=== PATIENT | male | born 1995 | race Caucasian/White ===

== ENCOUNTER 2017-02-03 00:37 | Emergency (ER) | payer OTHER ==
[2017-02-03 01:15] VITALS: BP 131/77
[2017-02-03 01:21] LABS: Urine Bacteria Absent (Absent); Urine Bilirubin Negative (Negative); Urine Glucose Negative (Negative); Urine Nitrite Negative (Negative)
[2017-02-03] MEDS ORDERED: Ciprofloxacin TAB* 500 MG PO ONE (02:07)
[2017-02-03] MEDS ORDERED: Phenazopyridine TAB* 100 MG PO ONE (02:09)
[2017-02-03] MEDS ORDERED: Acetaminophen TAB* 325 MG PO ONE (02:09)
--- NOTE | 2017-02-05 09:24 | PN ---
Progress Note - Progress Note Note: Patient urine culture grew E coli 25-50,000. patient placed on cipro will wait for final culture and sensitive.
--- NOTE | 2017-02-05 18:35 | ED ---
GI/ HPI - HPI Summary HPI Summary: Patient presents to ED with gross hematuria which started a few hours ago. He endorses urgency, frequency but denies burning with urination. He notes to mild discomfort suprapubically, but moderate penile discomfort. He denies chance of STD's and has been tested previously with negative results. He states there was clear discharge from the penis 1X today. He has never had a UTI before or has had penile problems. He denies testicular pain. Denies fevers , sweats or chills. Denies taking any medication. He has never had any problems with his kidneys and denies back pain. - History of Current Complaint Chief Complaint: EDUrogenitalProblems Time Seen by Provider: 02/03/17 01:54 Stated Complaint: BLOOD IN URINE Hx Obtained From: Patient Onset/Duration: Started Hours Ago Timing: Constant Severity: Moderate Current Severity: Moderate Pain Intensity: 1 Location of Pain: Suprapubic, None - penile Pain Characteristics: Colicy, Cramping, Pressure Associated Signs and Symptoms: Positive: Hematuria, Dysuria, UTI Symptoms Additional Signs & Symptoms: Positive: Penile Discharge - clear discharge Aggravating Factor(s): Voiding, Straining, Urination Alleviating Factor(s): Nothing - Risk Factors GI Bleed Risk Factor(s): Negative Spontaneous AB Risk Factor(s): Negative Testicular Torsion Risk Factor(s): Negative - Allergy/Home Medications Allergies/Adverse Reactions: Allergies Allergy/AdvReac Type Severity Reaction Status Date / Time No Known Allergies Allergy Verified 02/03/17 00:42 PMH/Surg Hx/FS Hx/Imm Hx Previously Healthy: Yes - Immunization History Hx Pertussis Vaccination: No Immunizations Up to Date: Yes Infectious Disease History: No Infectious Disease History: Denies: Traveled Outside the [place] in Last 30 Days - Family History Known Family History: Positive: Unknown - Social History Occupation: Student Lives: With Family Alcohol Use: None Hx Substance Use: No Substance Use Type: Reports: None Hx Tobacco Use: No Smoking Status (MU): Never Smoked Tobacco Do You Chew or Dip Tobacco: No Have You Chewed or Dipped Tobacco in the LAST YEAR: No Review of Systems Constitutional: Negative Eyes: Negative Cardiovascular: Negative Respiratory: Negative Positive: see HPI, burning, dysuria, discharge, frequency, hematuria, pain, urgency Musculoskeletal: Negative Neurological: Negative Psychological: Normal All Other Systems Reviewed And Are Negative: Yes Physical Exam Triage Information Reviewed: Yes Vital Signs On Initial Exam: Initial Vitals Temp Pulse Resp BP Pulse Ox 99.7 F 75 16 146/79 99 02/03/17 00:39 02/03/17 00:39 02/03/17 00:39 02/03/17 00:39 02/03/17 00:39 Vital Signs Reviewed: Yes Appearance: Positive: Well-Appearing, Well-Nourished Skin: Positive: Warm, Skin Color Reflects Adequate Perfusion Eyes: Positive: SHEREEN, Conjunctiva Clear Neck: Positive: Supple, No Lymphadenopathy Respiratory/Lung Sounds: Positive: Clear to Auscultation, Breath Sounds Present Cardiovascular: Positive: Normal, RRR Abdomen Description: Positive: Soft Bowel Sounds: Positive: Present Male Genital Exam: Positive: normal genitalia, no hernia, other - no testicular tenderness, positive cremaster reflex. no penile discharge on exam. no erythema around penile tip or scrotal sac Musculoskeletal: Positive: Strength/ROM Intact Neurological: Positive: Sensory/Motor Intact, Speech Normal Psychiatric: Positive: Normal AVPU Assessment: Alert - [place] Coma Scale Best Eye Response: 4 - Spontaneous Best Motor Response: 6 - Obeys Commands Best Verbal Response: 5 - Oriented Coma Scale Total: 15 Diagnostics - Vital Signs Vital Signs Temp Pulse Resp BP Pulse Ox 02/03/17 02:46 98 F 73 16 131/77 02/03/17 01:13 99.7 F 73 16 131/77 100 02/03/17 00:39 99.7 F 75 16 146/79 99 - Laboratory Lab Results: Lab Results 02/03/17 Range/Units 00:47 Urine Color Red A Urine Appearance Cloudy Urine pH 7.0 (5-9) Ur Specific [place] 1.011 (1.010-1.030) Urine Protein 2+(100 mg/dl) H (Negative) Urine Ketones Negative (Negative) Urine Blood 3+ H (Negative) Urine Nitrate Negative (Negative) Urine Bilirubin Negative (Negative) Urine Urobilinogen Negative (Negative) Ur Leukocyte Esterase 3+ H (Negative) Urine WBC (Auto) 3+(>20/hpf) H (Absent) Urine RBC (Auto) 3+(>10/hpf) H (Absent) Urine Bacteria Absent (Absent) Urine Glucose Negative (Negative) Lab Statement: Any lab studies that have been ordered have been reviewed, and results considered in the medical decision making process. GIGU Course/Dx - Course Course Of Treatment: Patient with 101 temp. UA shows RBC, WBC and leuks. Patient is treated for UTI. No obvious signs of discharge from penis or signs of STD infection. Cremaster reflex intact, no erythema or signs of torsion. Patient is treated with Cipro to cover pyelonephritis and UTI. Patient encouarged to follow up at [facility] and return immeidately if symptoms worsen. On discharge he is feeling improved and temp is 100. Tylenol given while in ED. no tenderness over prostate or epidydimus. - Diagnoses Differential Diagnoses - Male: Phimosis/Paraphimosis, Prostatitis, STD, Syphilis , Urethritis, Urinary Tract Infection Provider Diagnoses: Urinary tract infection Discharge - Discharge Plan Condition: Stable Disposition: HOME Prescriptions: Ciprofloxacin TAB* [Cipro 500 MG TAB*] 500 mg PO BID #14 tab Phenazopyridine TAB* [Pyridium 100 mg TAB*] 100 mg PO TID PRN #12 tab MDD 3 PRN Reason: Pain Patient Education Materials: Urinary Tract Infection in Men (ED), Kidney Infection (ED) Referrals: Kaz Foster MD [Primary Care Provider] - Additional Instructions: You have been diagnosed with UTI with possible kidney infection. The medication given to you will cover both. Please return to ED if symptoms become worse, you develop a worsening fever or are unable to urinate. Drink plenty of fluids. Supplement with cranberry or [place] juice. You may also take an over the counter cranberry supplement. If you have any questions about this, you may ask your pharmacist. If your symptoms have not improved in 1-2 days, if you develop fever, sweats or chills, please go to your emergency room, or call your PCP. Antibiotics were prescribed to you. Please take as directed. Supplement with over the counter probiotics on the opposite schedule of your antibiotic to prevent secondary infections. Do not take together as they may counteract each other. Pyridium: This medication is used to treat pain, burning, increased urination, and increased urge to urinate. These symptoms are usually caused by infection, injury, surgery, catheter, or other conditions that irritate the lower urinary tract. Pyridium will treat the symptoms of a urinary tract infection, but this medication does not treat the actual infection. Take the antibiotic that your doctor prescribes to treat your infection. Pyridium will most likely darken the color of your urine to an orange or red color. This is a normal effect and is not cause for alarm unless you have other symptoms such as pale or yellowed skin, fever, stomach pain, nausea, and vomiting. Darkened urine may also cause stains to your underwear, which may or may not be removed by laundering. It can also permanently stain soft contact lenses, and you should not wear them while taking this medicine.
--- NOTE | 2017-02-06 10:26 | PN ---
Progress Note - Progress Note Note: Patient placed on cipro which is sensitive to so no further action needed.
== END 2017-02-03 02:47 | disposition home or self-care (01) ==
LOC: ED 00:37
DX: N39.0 Urinary tract infection, site not specified (principal); B96.20 Unspecified Escherichia coli [E. coli] as the cause of diseases classified elsewhere; R31.9 Hematuria, unspecified
CPT/HCPCS: 81003; 81015; 87077; 87086; 87186; 99282; A9270-GY

== ENCOUNTER 2019-09-21 09:43 | Emergency (ER) | payer OTHER ==
--- NOTE | 2019-09-21 09:56 | UC ---
Throat Pain/Nasal Yanick HPI - HPI Summary HPI Summary: fever and chills and general feeling of illness x 4 days. did not get flu shot. denies sick contacts but did ride the bus. - History of Current Complaint Chief Complaint: UCGeneralIllness Stated Complaint: fever, and sore throat Time Seen by Provider: 09/21/19 09:46 Hx Obtained From: Patient Cough: Nonproductive Associated Signs & Symptoms: Positive: Negative - Epiglottits Risk Factors Epiglottis Risk Factors: Negative - Allergies/Home Medications Allergies/Adverse Reactions: Allergies Allergy/AdvReac Type Severity Reaction Status Date / Time No Known Allergies Allergy Verified 02/03/17 00:42 Home Medications: Home Medications NK [No Home Medications Reported] 09/21/19 [History Confirmed 09/21/19] PMH/Surg Hx/FS Hx/Imm Hx - Additional Past Medical History Additional PMH: no chronic illness Previously Healthy: Yes - Surgical History Surgical History: Unable to Obtain/Confirm - Family History Known Family History: Positive: Unknown - Social History Alcohol Use: None Substance Use Type: None Smoking Status (MU): Never Smoked Tobacco Review of Systems All Other Systems Reviewed And Are Negative: Yes Constitutional: Positive: Fever, Chills, Fatigue Skin: Negative: Rash Eyes: Negative: Drainage ENT: Positive: Sore Throat. Negative: Sinus Congestion Respiratory: Negative: Cough Genitourinary: Negative: Other - decr. fluids Musculoskeletal: Negative: Arthralgia Neurological: Negative: Headache Physical Exam Triage Information Reviewed: Yes Appearance: Well-Appearing Eyes: Positive: Conjunctiva Clear ENT: Positive: Pharynx normal, Uvula midline Neck: Positive: Supple, Nontender, No Lymphadenopathy Respiratory Exam: Normal Cardiovascular Exam: Normal Neurological: Positive: Alert Skin: Negative: Rashes Throat Pain/Nasal Course/Dx - Course Course Of Treatment: Fever, chills and feeling ill x4 days. did not get flu shot. able to urinate normally. rapid strep neg, +rapid flu. febrile today and we gave tylenol. recommended rest and increased fluids. exam unremarkable. - Differential Dx/Diagnosis Differential Diagnosis/HQI/PQRI: Influenza, URI, Other Provider Diagnosis: Influenza Discharge ED - Sign-Out/Discharge Documenting (check all that apply): Patient Departure All imaging exams completed and their final reports reviewed: No Studies - Discharge Plan Condition: Good Disposition: HOME Patient Education Materials: Influenza (ED) Referrals: No Primary Care Phys,NOPCP [Primary Care Provider] - Additional Instructions: Please rest and increase fluid intake. - Billing Disposition and Condition Condition: GOOD Disposition: Home - Attestation Statements Provider Attestation: Pt not seen by me I was available for consult chart reviewed ANGELIQUE
[2019-09-21 09:57] VITALS: BP 114/68
[2019-09-21] MEDS ORDERED: Ibuprofen TAB* 600 MG PO ONE (10:01)
[2019-09-21 10:11] LABS: Influenza B Molecular POSITIVE (Negative)
== END 2019-09-21 10:20 | disposition home or self-care (01) ==
LOC: UCEAST 09:43
DX: J11.1 Influenza due to unidentified influenza virus with other respiratory manifestations (principal)
CPT/HCPCS: 87651; 99212; A9270-GY; G0463

== ENCOUNTER 2019-09-21 22:11 | Emergency (ER) | payer OTHER ==
[2019-09-21] MEDS ORDERED: Ondansetron ODT TAB* 4 MG PO ONE (22:48)
--- NOTE | 2019-09-21 22:49 | ED ---
Influenza-Like Illness - HPI Summary HPI Summary: Patient with positive flu B test at [facility] today complains of new onset nausea vomiting and being unable to tolerate fluids. Flu symptoms include fever, headache, productive cough. Denies ear pain, neck stiffness, CP , SOB, abdominal pain, change in urine, change in BM. Medical history is none. Negative strep at [facility]. - History of Current Complaint Chief Complaint: EDFluSymptoms Time Seen by Provider: 09/21/19 22:39 Hx Obtained From: Patient Onset/Duration: Sudden Onset, Lasting Hours Severity: Moderate Associated Signs & Symptoms: Fever, Myalgia, Cough, Vomiting - Allergy/Home Medications Allergies/Adverse Reactions: Allergies Allergy/AdvReac Type Severity Reaction Status Date / Time No Known Allergies Allergy Verified 02/03/17 00:42 PMH/Surg Hx/FS Hx/Imm Hx Endocrine/Hematology History: Denies: Hx Anticoagulant Therapy Cardiovascular History: Denies: Hx Pacemaker/ICD History: Denies: Hx Dialysis Sensory History: Denies: Hx Eye Prosthesis Opthamlomology History: Denies: Hx Legally Blind EENT History: Denies: Hx Deafness - Surgical History Surgery Procedure, Year, and Place: Hernia repair Infectious Disease History: No Infectious Disease History: Denies: Traveled Outside the [place] in Last 30 Days - Family History Known Family History: Positive: Unknown - Social History Alcohol Use: None Hx Substance Use: No Substance Use Type: Reports: None Hx Tobacco Use: No Smoking Status (MU): Never Smoked Tobacco Review of Systems Positive: Fever Eyes: Negative ENT: Negative Cardiovascular: Negative Positive: Cough Positive: Vomiting, Nausea. Negative: Abdominal Pain Genitourinary: Negative Positive: Myalgia Skin: Negative Neurological: Negative Psychological: Normal All Other Systems Reviewed And Are Negative: Yes Physical Exam Triage Information Reviewed: Yes Vital Signs On Initial Exam: Initial Vitals Temp Pulse Resp BP Pulse Ox 99.8 F 76 18 135/73 98 09/21/19 22:15 09/21/19 22:15 09/21/19 22:15 09/21/19 22:15 09/21/19 22:15 Vital Signs Reviewed: Yes Appearance: Positive: Well-Appearing Skin: Positive: Warm Head/Face: Positive: Normal Head/Face Inspection Eyes: Positive: Normal ENT: Positive: Normal ENT inspection Neck: Positive: Supple Respiratory/Lung Sounds: Positive: Clear to Auscultation Cardiovascular: Positive: Normal Abdomen Description: Positive: Nontender Musculoskeletal: Positive: Normal Neurological: Positive: Normal Psychiatric: Positive: Normal AVPU Assessment: Alert - [place] Coma Scale Best Eye Response: 4 - Spontaneous Best Motor Response: 6 - Obeys Commands Best Verbal Response: 5 - Oriented Coma Scale Total: 15 Procedures - Sedation Patient Received Moderate/Deep Sedation with Procedure: No Diagnostics - Vital Signs Vital Signs Temp Pulse Resp BP Pulse Ox 09/21/19 22:15 99.8 F 76 18 135/73 98 - Laboratory Result Diagrams: 09/21/19 23:00 09/21/19 23:00 Lab Statement: Any lab studies that have been ordered have been reviewed, and results considered in the medical decision making process. Flu Symptom Course/Dx - Course Course Of Treatment: Patient with positive flu B test at [facility] today complains of new onset nausea vomiting and being unable to tolerate fluids. Flu symptoms include fever, headache, productive cough. Denies ear pain, neck stiffness, CP, SOB, abdominal pain, change in urine, change in BM. Medical history is none. Negative strep at [facility]. Vital signs within normal limits. Henry negative. Labs unremarkable. Nausea vomiting controlled with Zofran 4 mg IV. Rx for Zofran ODT. - Diagnoses Provider Diagnoses: Flu, Nausea & vomiting Discharge ED - Sign-Out/Discharge Documenting (check all that apply): Patient Departure - Discharge Plan Condition: Stable Disposition: HOME Patient Education Materials: Influenza (ED), Acute Nausea and Vomiting (ED) Referrals: No Primary Care Phys,NOPCP [Primary Care Provider] - Additional Instructions: Take under the tongue Zofran as directed for nausea if needed. Drink fluids to maintain hydration. Alternate ibuprofen 600 mg with Tylenol 650 mg every 3 hours for headache and body aches. Follow-up with primary care. Return to the ED for any new or worsening symptoms. - Billing Disposition and Condition Condition: STABLE Disposition: Home
[2019-09-21 23:09] LABS: ABS Lymphocytes 0.6 10^3/ul (1.0-4.8); ABS Monocytes 0.5 10^3/ul (0-0.8); Eosinophil % 0.8 %; Hematocrit 41 % (42-52); Hemoglobin 14.8 g/dL (14.0-18.0); Mean Corpuscular HGB Conc 36 g/dL (31-36); Mean Corpuscular Hemoglobin 31 pg (27-31); Mean Corpuscular Volume 86 fL (80-94); Mean Platelet Volume 8.6 fL (7.4-10.4); Platelet Count 102 10^3/uL (150-450); Red Blood Count 4.78 10^6 /uL (4.18-5.48); Red Cell Distribution Width 13 % (10-15); White Blood Count 3.2 10^3/uL (3.5-10.8)
[2019-09-21 23:25] LABS: Albumin 3.8 g/dL (3.2-5.2); Albumin/Globulin Ratio 1.5 (1-3); BUN/Creatinine Ratio 7.6 (8-20); C Reactive Protein 29.49 mg/L (<8.01); Calcium 8.2 mg/dL (8.6-10.3); EGFR African American 122.3 (>60); EGFR Non-African American 101.1 (>60); Globulin 2.5 g/dL (2-4); Potassium 3.5 mmol/L (3.5-5.0); Total Bilirubin 0.8 mg/dL (0.2-1.0); Total Protein 6.3 g/dL (6.4-8.9)
[2019-09-22] MEDS ORDERED: NS 0.9% 1000 ML** 1,000 ML IV ONE ×2 (00:05)
[2019-09-22] MEDS ORDERED: Ondansetron INJ* 2 MG/ML VIAL IV ONE (00:12)
[2019-09-22] MEDS ORDERED: Ondansetron ODT TAB* 4 MG PO ONE ×2 (01:11→02:00)
[2019-09-22 01:32] VITALS: BP 142/83
[2019-09-22] MEDS ORDERED: Ibuprofen TAB* 600 MG PO ONE (01:39)
== END 2019-09-22 02:00 | disposition home or self-care (01) ==
LOC: ED 22:11
DX: J11.1 Influenza due to unidentified influenza virus with other respiratory manifestations (principal); R11.2 Nausea with vomiting, unspecified
CPT/HCPCS: 36415; 80053; 83605; 85025; 86140; 86308; 96361; 96374; 99283; A9270-GY; J2405